=== PATIENT | male | born 1945 | race Caucasian/White ===

== ENCOUNTER 2025-03-09 09:06 | Emergency (ER) | payer MEDICARE ==
[2025-03-09 09:14] VITALS: TEMP 96.1; O2SAT 99
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
[2025-03-09] MEDS ORDERED: BACIGUENT PACKET ONE (09:53)
[2025-03-09] MEDS: BACIGUENT PACKET TP STA (09:56)
[2025-03-09 10:09] VITALS: BP 128/71; PULSE 86
[2025-03-09] MEDS ORDERED: Adacel Vial IM ONE (10:16)
[2025-03-09] MEDS: Adacel Vial IM ONE (10:17)
== END 2025-03-09 10:58 | disposition home or self-care (01) ==
LOC: ED 09:06
DX: Z04.1 Encounter for examination and observation following transport accident (principal); S50.312A Abrasion of left elbow, initial encounter; S50.311A Abrasion of right elbow, initial encounter; I10 Essential (primary) hypertension; Z23 Encounter for immunization